=== PATIENT | female | born 1950 | race Caucasian/White ===

== ENCOUNTER → 2023-06-05 | Outpatient (REF) | payer MEDICARE, OTHER | LOC: M SFHCCLAY 10:18 | PROVIDERS: ATTEND Nurse Practitioner Family | DX: R09.81 Nasal congestion (principal) ==

== ENCOUNTER → 2023-12-04 | Outpatient (CLI) | payer MEDICARE, OTHER | LOC: M CLY 15:11 | PROVIDERS: ATTEND Family Medicine | DX: M51.34 Other intervertebral disc degeneration, thoracic region (principal); M51.36 Other intervertebral disc degeneration, lumbar region; M99.02 Segmental and somatic dysfunction of thoracic region ==

== ENCOUNTER → 2023-12-29 | Outpatient (CLI) | payer MEDICARE, OTHER | LOC: M PLAIMG 10:03 | PROVIDERS: ATTEND Family Medicine | DX: M54.50 Low back pain, unspecified (principal); C90.00 Multiple myeloma not having achieved remission; M47.816 Spondylosis without myelopathy or radiculopathy, lumbar region; M47.817 Spondylosis without myelopathy or radiculopathy, lumbosacral region ==

== ENCOUNTER 2024-01-22 12:50 | Day surgery (SDC) | payer MEDICARE, OTHER ==
[~2024-01-22] VITALS: Ht 157.5 cm; Wt 49.4 kg
[~2024-01-22 12:50] MED LIST: CARV6.25 PO; CYCL-707 PO; DARA15VI SQ; ELIQ5TAB PO; HYDR200T46 PO; MELO7.5T35 PO; PROL60SO SC; REST0.057 OU; REVL10CA2 PO; VALA1TAB5 PO
[2024-01-22] MEDS: NS 1,000 ML IV ONE (13:18)
[2024-01-22] MEDS ORDERED: propofoL 200 MG/20 ML VIAL As Ordered ONE (13:56)
[2024-01-22 14:19] VITALS: TEMP 97.9
[2024-01-22 14:40] VITALS: BP 130/61; O2SAT 98
== END 2024-01-22 14:47 | disposition home or self-care (01) ==
LOC: M OPP 12:50
PROVIDERS: ATTEND Internal Medicine Gastroenterology
DX: Z12.11 Encounter for screening for malignant neoplasm of colon (principal); K64.8 Other hemorrhoids; K64.4 Residual hemorrhoidal skin tags; K57.30 Diverticulosis of large intestine without perforation or abscess without bleeding; I48.91 Unspecified atrial fibrillation; I10 Essential (primary) hypertension; Z79.01 Long term (current) use of anticoagulants; Z79.1 Long term (current) use of non-steroidal anti-inflammatories (NSAID); Z79.61 Long term (current) use of immunomodulator; Z79.620 Long term (current) use of immunosuppressive biologic; Z79.83 Long term (current) use of bisphosphonates; Z79.891 Long term (current) use of opiate analgesic; Z79.899 Other long term (current) drug therapy

== ENCOUNTER → 2024-05-12 | Outpatient (REF) | payer MEDICARE, OTHER | LOC: M SFHCCLAY 10:50 | PROVIDERS: ATTEND Physician Assistant | DX: Z20.822 Contact with and (suspected) exposure to COVID-19 (principal) ==

== ENCOUNTER → 2024-10-14 | Outpatient (REF) | payer MEDICARE, OTHER | LOC: M SFHCCLAY 12:53 | PROVIDERS: ATTEND Family Medicine | DX: R05.1 Acute cough (principal) ==

== ENCOUNTER → 2025-02-09 | Outpatient (CLI) | payer MEDICARE, OTHER ==
[~2025-02-09] MED LIST changes: +DENO60SY2 SC; -PROL60SO SC
== END ==
LOC: M PLAIMG 11:16
PROVIDERS: ATTEND Family Medicine
DX: J32.9 Chronic sinusitis, unspecified (principal); Z98.890 Other specified postprocedural states

== ENCOUNTER → 2025-07-10 | Outpatient (REF) | payer MEDICARE, OTHER | LOC: M SFHCCLAY 14:48 | PROVIDERS: ATTEND Family Medicine | DX: Z53.9 Procedure and treatment not carried out, unspecified reason (principal); B35.1 Tinea unguium ==

== ENCOUNTER → 2025-09-14 | Outpatient (REF) | payer MEDICARE, OTHER | LOC: M SFHCCLAY 11:59 | PROVIDERS: ATTEND Family Medicine | DX: Z53.9 Procedure and treatment not carried out, unspecified reason (principal) ==